=== PATIENT | female | born 2000 | race Caucasian/White ===

== ENCOUNTER 2019-04-07 21:17 | Emergency (ER) | payer BC ==
[2019-04-08] MEDS ORDERED: KETOROLAC TROMETHAMINE 60 MG/2 ML SDV IM ONE (00:41)
[2019-04-08] MEDS ORDERED: DIPHENHYDRAMINE HCL 50 MG/ML VIAL IM ONE (00:41)
[2019-04-08] MEDS ORDERED: PROCHLORPERAZINE EDISYLATE INJ 10 MG/2 ML VIAL IM ONE (00:41)
--- NOTE | 2019-04-08 00:47 | ER Document Report ---
ED General - General Chief Complaint: Eye Pain Stated Complaint: LEFT EYE PAIN Time Seen by Provider: 04/07/19 23:57 Notes: 18-year-old female presents to the emergency complaining of headache behind her left eye that started after she woke up from a nap this afternoon around 3 PM and its associated with feeling like there is a black curtain coming down at the top of her vision on her left eye. States that is not so much blurry as a visual field cut. States that it feels very similar to April 2017 when she had a retinal detachment of unknown cause in the same distribution on her right eye. Patient states that she ignored the symptoms for several weeks before she went in and now has a permanent visual deficit because of it. Patient did experience complications from her surgery as well leading to the development of a cataract with cataract removal. Denies neck pain, fever, numbness, tingling, weakness, difficulty swallowing. Patient has no history of prior similar headache. Denies any trauma. States that the headache has actually gotten better with time. Did not change with ibuprofen. Past Medical History - General Information source: Patient - Social History Smoking Status: Current Every Day Smoker Chew tobacco use (# tins/day): No Frequency of alcohol use: Occasional Drug Abuse: None Family History: Reviewed & Not Pertinent Patient has suicidal ideation: No Patient has homicidal ideation: No Review of Systems - Review of Systems Constitutional: No symptoms reported EENT: See HPI Cardiovascular: No symptoms reported Respiratory: No symptoms reported Neurological/Psychological: See HPI -: Yes All other systems reviewed and negative Physical Exam - Vital signs Vitals: Temp Pulse Resp BP Pulse Ox 98.5 F 101 H 18 149/82 H 99 04/07/19 21:37 04/07/19 21:37 04/07/19 21:37 04/07/19 21:37 04/07/19 21:37 Interpretation: Hypertensive, Tachycardic - Notes Notes: GENERAL: Alert, interacts well. No acute distress. HEAD: Normocephalic, atraumatic EYES: Pupils equal, round and reactive to light, extraocular movements intact. Visual field cut superiorly bilateral eyes right greater than left. Funduscopic examination does not reveal obvious retinal detachment on either eye. I am not able to visualize the postsurgical changes on the right eye. ENT: Oral mucosa moist, tongue midline. NECK: Full range of motion, supple, trachea midline. LUNGS: No respiratory distress. EXTREMITIES: Moves all 4 extremities spontaneously, no edema, radial and dorsalis pedis pulses 2/4 bilaterally. No cyanosis. NEUROLOGICAL: Alert and oriented x3, normal speech.Auignt-my-mfea and pawe-uz-[id number] testing intact. PSYCH: Normal mood, normal affect. SKIN: Warm, Dry, normal turgor, no rashes or lesions noted. Course - Re-evaluation Re-evalutation: 04/08/19 01:20 Bedside ultrasound performed by myself does not reveal obvious retinal detachment. Funduscopic exam does not reveal obvious retinal detachment. Discussed with patient limitations of exam in the emergency department for retinal detachment. Discussed patient with Dr. Batista and my concern for possible retinal detachment with slight visual field cut, Dr. Batista released to see the patient at 8 AM tomorrow morning. States she should present to the office and he will work her in. At this point is the visual field cut is very slight and this is very early I do not feel she needs immediate referral this evening to a retinal center. Patient is in agreement. Patient's headache will be treated with Toradol, Compazine and Benadryl. Discharged to home. - Vital Signs Vital signs: Temp Pulse Resp BP Pulse Ox 98.5 F 101 H 18 149/82 H 99 04/07/19 21:37 04/07/19 21:37 04/07/19 21:37 04/07/19 21:37 04/07/19 21:37 Discharge - Discharge Clinical Impression: Left-sided headache, Superior visual field cut, Suspected retinal detachment Condition: Stable Disposition: HOME, SELF-CARE Additional Instructions: Currently I do not know whether or not you are having a very early retinal detachment on your left eye. You should follow-up with Dr. Batista first thing in the morning. He states that you should show up at his office at 8 AM and he will work you in as soon as he can in the morning. If your headache worsens, if you lose more vision in the eye or you develop any new or concerning symptoms before you get to his office tomorrow morning please come back to the emergency department. Referrals: EM BATISTA DO [ACTIVE STAFF] - 04/08/19 8:00 am
[2019-04-08 01:53] VITALS: BP 119/66
== END 2019-04-08 01:53 | disposition home or self-care (01) ==
LOC: ER 21:17
DX: R51 Headache (principal); H53.40 Unspecified visual field defects; Z98.49 Cataract extraction status, unspecified eye; F17.200 Nicotine dependence, unspecified, uncomplicated
CPT/HCPCS: 99283; 96372; J1200; J1885; J0780

== ENCOUNTER 2019-10-05 20:50 | Emergency (ER) | payer BC ==
[2019-10-05] MEDS ORDERED: NORMAL SALINE 1000 ML 1,000 ML IV ONE (20:56)
[2019-10-05] MEDS ORDERED: ONDANSETRON HCL INJ/PF 4 MG/2 ML SDV IV ONE ×2 (20:56→23:29)
[2019-10-05] MEDS ORDERED: MORPHINE SULFATE 10 MG/ML INJ IV ONE ×2 (20:56→21:43)
--- NOTE | 2019-10-05 21:00 | ER Document Report ---
ED Medical Screen (RME) - General Chief Complaint: Abdominal Pain Stated Complaint: ABDOMINAL PAIN Time Seen by Provider: 10/05/19 20:51 - HPI Notes: 10/05/19 20:57 19-year-old female presents emergency room for sudden onset right lower quadrant abdominal pain x1 hour ago. Patient states she was just watching TV and it suddenly came on. Reports pain is sharp and constant, worse while she is sitting up, feels better in position. Reports vomiting and nausea and. Last menstrual cycle was August 24, 2019, states she is irregular periods. Patient was seen at her doctor's office yesterday for a UTI and was started on an tibiotics. Does have history of IBS GERD and spondylolisthesis in her lower back. Denies any vaginal bleeding or vaginal discharge. Denies any chest pain or shortness of breath. Denies any fevers or chills I have greeted and performed a rapid initial assessment of this patient. A comprehensive ED assessment and evaluation of the patient, analysis of test results and completion of the medical decision making process will be conducted by additional ED providers. PHYSICAL EXAMINATION: GENERAL: Well-appearing, well-nourished and in moderate distress, crying CV: Tachycardic LUNGS: No respiratory distress Musculoskeletal: Normal range of motion abd: Right lower quadrant abdominal pain to palpation, guarding. - Related Data Allergies/Adverse Reactions: No Known Allergies Allergy (Unverified 10/05/19 20:53) Physical Exam - Vital signs Vitals: Temp Pulse BP Pulse Ox 98.6 F 121 H 153/76 H 96 10/05/19 20:54 10/05/19 20:54 10/05/19 20:54 10/05/19 20:54 Course - Vital Signs Vital signs: Temp Pulse Resp BP Pulse Ox 98.6 F 121 H 153/76 H 96 10/05/19 20:54 10/05/19 20:54 10/05/19 20:54 10/05/19 20:54
[2019-10-05 21:36] LABS: ABSOLUTE EOSINOPHILS # (AUTO) 0.2 10^3/uL (0.0-0.6); ABSOLUTE LYMPHOCYTES (AUTO) 1.7 10^3/uL (0.5-4.7); ABSOLUTE MONOCYTES (AUTO) 0.5 10^3/uL (0.1-1.4); BASOPHILS % (AUTO) 0.7 % (0-2); EOSINOPHILS % (AUTO) 3.4 % (0-6); HEMATOCRIT 39.1 % (36.0-47.0); HEMOGLOBIN 13.4 g/dL (12.0-15.5); LYMPHOCYTES % (AUTO) 31.7 % (13-45); MEAN CORPUSCULAR HEMOGLOBIN 30.1 pg (27.0-33.4); MEAN CORPUSCULAR HGB CONC 34.1 g/dL (32.0-36.0); MEAN CORPUSCULAR VOLUME 88 fl (80-97); MONOCYTES % (AUTO) 8.6 % (3-13); PLATELET COUNT 216 10^3/uL (150-450); RED BLOOD COUNT 4.43 10^6/uL (3.72-5.28); RED CELL DISTRIBUTION WIDTH 12.2 % (11.5-14.0); SEGMENTED NEUTROPHILS % (AUTO) 55.6 % (42-78); TOTAL CELLS COUNTED % (AUTO) 100 %; WHITE BLOOD COUNT 5.4 10^3/uL (4.0-10.5)
--- NOTE | 2019-10-05 21:38 | ER Document Report ---
ED General - General Chief Complaint: Abdominal Pain Stated Complaint: ABDOMINAL PAIN Time Seen by Provider: 10/05/19 20:51 Primary Care Provider: YANIQUE LR PA-C [Primary Care Provider] - Follow up as needed - [facility] Notes: 19-year-old female presents with abdominal pain. Patient developed right lower quadrant dull pain at this afternoon. States that she was at a friend's house, and suddenly she was doubled over in pain. States that she has episodes where the pain is better, but then pain returned and is severe. Worse with certain movements. It is sharp. She developed nausea and vomiting after onset of pain. She states that she currently is being treated for a UTI, was started on antibiotics yesterday. She denies any vaginal bleeding or discharge. - Related Data Allergies/Adverse Reactions: No Known Allergies Allergy (Unverified 10/05/19 20:53) Home Medications: control, MV Past Medical History - Social History Smoking Status: Current Some Day Smoker Chew tobacco use (# tins/day): No Frequency of alcohol use: Social Drug Abuse: Marijuana Family History: Reviewed & Not Pertinent Patient has homicidal ideation: No Review of Systems - Review of Systems Constitutional: denies: Fever EENT: No symptoms reported Cardiovascular: No symptoms reported Respiratory: No symptoms reported Gastrointestinal: Abdominal pain, Nausea, Vomiting Genitourinary: denies: Dysuria Female Genitourinary: denies: , Vaginal discharge Musculoskeletal: Back pain Skin: No symptoms reported Hematologic/Lymphatic: No symptoms reported Neurological/Psychological: No symptoms reported Physical Exam - Vital signs Vitals: Temp Pulse BP Pulse Ox 98.6 F 121 H 153/76 H 96 10/05/19 20:54 10/05/19 20:54 10/05/19 20:54 10/05/19 20:54 Interpretation: Tachycardic. No: Febrile - General In distress: Moderate - HEENT Head: Normocephalic, Atraumatic Eyes: Normal Pupils: PERRL - Respiratory Breath sounds: Normal - Cardiovascular Rhythm: Tachycardia Heart sounds: Normal auscultation Normal capillary refill: Yes - Abdominal Distension: No distension Bowel sounds: Normal Tenderness: Tender - Right lower quadrant - Back Back: Nontender - Extremities General upper extremity: Normal inspection General lower extremity: Normal inspection - Neurological Neuro grossly intact: Yes Cognition: Normal Orientation: AAOx4 - Psychological Associated symptoms: Normal affect - Skin Skin Temperature: Warm Course - Re-evaluation Re-evalutation: 19-year-old female with right lower quadrant pain, onset a few hours ago. She appears to be in a moderate amount of pain, she is doubled over in bed. She has tenderness to the right lower quadrant. Given the intermittent nature, concern for possible ovarian torsion, transvaginal ultrasound ordered, ruptured cyst possibility as well. Additionally given the location, along with the nausea and vomiting after pain, concern for appendicitis, CT abdomen ordered. Currently undergoing antibiotic treatment for UTI, pyelonephritis possibility as well. Will treat pain with morphine and nausea with Zofran. She has been administered fluids via triage. 10/05/19 22:14 In to reevaluate patient, she is now complaining of pain right lower quadrant with some radiation to her right back. She has some mild tenderness at this area. For this reason have ordered transvaginal ultrasound to evaluate for torsion 10/05/19 23:56 Ultrasound read as no ovarian torsion 10/06/19 01:06 CT has resulted, did looks like the major finding is a ruptured right ovarian cyst. No appendicitis. Updated patient on results. She looks somewhat improved, though still having some nausea, will trial Phenergan for additional nausea relief. Also trial Toradol for pain. 10/06/19 02:25 Into reassess patient. She looks markedly improved. She reports her symptoms have resolved. Tachycardia has resolved. Will discharge with ibuprofen, Phenergan and Zofran. Discussed PCP follow-up and potential need to see [facility] return precautions given, stable at time of discharge. 10/06/19 02:29 - Vital Signs Vital signs: Temp Pulse Resp BP Pulse Ox 98.1 F 121 H 19 124/83 99 10/06/19 01:00 10/05/19 20:54 10/06/19 01:29 10/06/19 01:29 10/06/19 01:29 - Laboratory Result Diagrams: 10/05/19 21:10 10/05/19 21:10 Laboratory results interpreted by me: 10/05/19 10/05/19 21:10 22:15 Sodium 135.8 L Calcium 10.4 H Urine Nitrite POSITIVE H Urine Urobilinogen 4.0 H Labs reviewed. No leukocytosis or left shift. Electrolytes okay, creatinine within normal limits. Normal LFTs and no elevation of T bili, therefore less suggestive of biliary pathology at this time. Lipase is within normal limits as well. Urine showed nitrate positive, she currently is being treated for UTI, sent for culture. - Diagnostic Test Radiology reviewed: Image reviewed, Reports reviewed Discharge - Discharge Clinical Impression: Ruptured ovarian cyst Condition: Stable Disposition: HOME, SELF-CARE Additional Instructions: Take ibuprofen over 6 hours as prescribed. Can alternate between Zofran and Phenergan for nausea/vomiting. Please follow-up with your PCP. Return to ED fo r any concerning symptoms. Prescriptions: Ibuprofen [Ibu] 600 mg PO Q6 14 Days #56 tablet Promethazine HCl [Phenergan 25 mg Tablet] 1 - 2 tab PO Q6H PRN #15 tablet PRN Reason: Ondansetron [Zofran Odt 4 mg Tablet] 1 - 2 tab PO Q4H PRN #15 tab.rapdis PRN Reason: For Nausea/Vomiting Referrals: YANIQUE LR PA-C [Primary Care Provider] - Follow up as needed
[2019-10-05 22:00] LABS: ALKALINE PHOSPHATASE 50 U/L (38-126); ANION GAP 10 (5-19); ASPARTATE AMINO TRANSFERASE 25 U/L (14-36); BILIRUBIN,TOTAL 0.3 mg/dL (0.2-1.3); BLOOD UREA NITROGEN 11 mg/dL (7-20); CALCIUM 10.4 mg/dL (8.4-10.2); CARBON DIOXIDE 24 mmol/L (22-30); CHLORIDE 102 mmol/L (98-107); GLUCOSE 100 mg/dL (75-110); POTASSIUM 3.8 mmol/L (3.6-5.0); TOTAL PROTEIN 8.1 g/dL (6.3-8.2)
[2019-10-05 22:48] LABS: APPEARANCE,URINE CLEAR; BILIRUBIN,URINE NEGATIVE (NEGATIVE); COLOR,URINE AMBER; GLUCOSE, URINE NEGATIVE (NEGATIVE); KETONES,URINE NEGATIVE (NEGATIVE); LEUKOCYTE ESTERASE,URINE NEGATIVE (NEGATIVE); NITRITE,URINE POSITIVE (NEGATIVE); PROTEIN,URINE NEGATIVE (NEGATIVE); URINE SPECIFIC GRAVITY 1.006
--- NOTE | 2019-10-05 23:39 | RADIOLOGY REPORT (SQ) ---
US PELVIS HISTORY: Right lower quadrant pain. Evaluate for torsion. COMPARISON: None. TECHNIQUE: Grayscale, color Doppler, and spectral Doppler ultrasound images of the pelvis were obtained. FINDINGS: The uterus is anteverted and measures 7.0 x 4.6 x 3.4 cm. The endometrium is 6 mm in thickness. The cervix is 2.1 cm in length. Nabothian cysts are seen in the cervix. Both ovaries are normal in size and contain normal follicles, with the right ovary measuring 4.7 x 2.3 x 2.4 cm, and the left ovary measuring 4.0 x 1.8 x 1.7 cm. Normal color Doppler blood flow is seen in both ovaries. There is fluid in the posterior cul-de-sac and in the right adnexa. IMPRESSION: No evidence of ovarian torsion.
--- NOTE | 2019-10-06 00:49 | RADIOLOGY REPORT (SQ) ---
EXAM DESCRIPTION: CT abdomen and pelvis with contrast CLINICAL HISTORY: 19 years Female, RLQ abd pain x 1 hour, sudden onset COMPARISON: None. TECHNIQUE: Axial images of the abdomen and pelvis were performed utilizing intravenous contrast, with sagittal and coronal reformatted images. This exam was performed according to our departmental dose-optimization program which includes use of Automated Exposure Control, adjustment of the mA and/or kV according to patient size and/or use of iterative reconstruction technique. FINDINGS: There is a 1.9 cm partially collapsed right ovarian corpus luteum cyst. There is a small amount of free fluid on the right side of the pelvis. The appendix appears normal. No evidence of bowel obstruction. There is no significant radiographic abnormality of the liver, spleen, pancreas, adrenal glands or kidneys. No mass or adenopathy. No free air. IMPRESSION: Findings are compatible with a ruptured right ovarian corpus luteum cyst. No follow-up imaging is recommended.
[2019-10-06] MEDS ORDERED: PROMETHAZINE HCL INJ 25 MG/1 ML VIAL IV ONE (01:03)
[2019-10-06] MEDS ORDERED: KETOROLAC TROMETHAMINE INJ/PF 30 MG/1 ML SDV IV ONE (01:06)
[2019-10-06 02:57] VITALS: BP 106/52
== END 2019-10-06 02:57 | disposition home or self-care (01) ==
LOC: ER 20:50
DX: N83.291 Other ovarian cyst, right side (principal); R10.31 Right lower quadrant pain; M54.9 Dorsalgia, unspecified; R11.2 Nausea with vomiting, unspecified; F17.200 Nicotine dependence, unspecified, uncomplicated; F12.10 Cannabis abuse, uncomplicated
CPT/HCPCS: 36415; 87086; 83690; 85025; 81025; 80053; 81001; 76856; 93976; 74177; J1885; J2270; J2550; J2405; J7030